=== PATIENT | male | born 1980 | race Caucasian/White ===

== ENCOUNTER 2018-04-19 10:35 | Inpatient (IN) ==
[2018-04-19] MEDS ORDERED: Morphine Inj 4 MG/ML Vial IV.PUSH ONE (11:00)
--- NOTE | 2018-04-19 11:05 | ED ---
HPI General Chief Complaint: Fall Stated Complaint: lt rib pain after fall x lastnight Time Seen by Provider: 04/19/18 10:57 Source: patient Mode of arrival: ambulatory Limitations: no limitations History of Present Illness HPI Narrative: The patient is a 37-year-old male who presents to the emergency department via private vehicle for left chest pain. The patient states he was drinking alcohol last night when he fell against a chair. He now complains of left-sided lateral and posterior rib pain, mild shortness of breath , and pain with movement. The patient states the pain is moderate to severe, worse with movement, breathing, and inspiration. The patient does have a history of asthma, denies any history of previous pneumothorax. The patient denies any head injury or loss of consciousness during the fall. He denies any significant nausea, vomiting, or abdominal pain. The patient denies any medications except for albuterol, has no known drug allergies, but has had previous surgeries including shoulder surgery and ankle surgery. The patient does not have a local primary physician. MD complaint: Reports fall Onset (ago): hour(s) Fall from: standing Fall witnessed: no Place fall occurred: home Loss of consciousness: none Prolonged down time: no Symptoms prior to fall: Reports none Context: Reports alcohol use Location of injury: Reports chest Severity: severe Severity scale (1-10): 8 Quality: Reports stabbing Associated symptoms (after fall): Reports chest pain Related Data Home Medications Medication Instructions Recorded Confirmed budesonide-formoterol [Symbicort] 2 puff INHALATION BID PRN 04/19/18 04/19/18 Allergies Allergy/AdvReac Type Severity Reaction Status Date / Time No Known Allergies Allergy Verified 04/19/18 10:36 Review of Systems ROS: all other systems reviewed are negative [facility] Medical History Medical History Asthma (Acute) Surgical History Surgical History History of ankle surgery (Acute) Hx of shoulder surgery (Acute) Social History Social History Substance History: No History of Abuse Smoking Status: Current every day smoker Tobacco Type: Cigarettes How Often Do You Have a Drink Containing Alcohol: 2 to 3 times a week Recent Travel in [facility] within the Last 8 Weeks: No Recent Out of Country Travel within the Last 8 Weeks: No Immunization History Tetanus Immunization: <5 Years Exam Narrative Exam Narrative: GENERAL: Awake, alert, pleasant 37-year-old male who appears his stated age and is in no acute respiratory distress. Appears in moderate discomfort. SKIN: Focused skin assessment warm/dry. HEAD: Atraumatic. Normocephalic. EYES: Pupils equal and round. No scleral icterus. No injection or drainage. ENT: No nasal bleeding or discharge. Mucous membranes pink and moist. NECK: Trachea midline. No JVD. CARDIOVASCULAR: Regular rate and rhythm. No murmur appreciated. Heart rate in the 90s. Small amount of subcutaneous emphysema in the left lateral chest wall. RESPIRATORY: No accessory muscle use. Clear to auscultation. Breath sounds equal bilaterally. GASTROINTESTINAL: Abdomen soft, non-tender, nondistended. No guarding or rigidity. MUSCULOSKELETAL: No obvious deformities. No clubbing. No cyanosis. No edema. NEUROLOGICAL: Awake and alert. No obvious cranial nerve deficits. Motor grossly within normal limits. Normal speech. PSYCHIATRIC: Appropriate mood and affect; insight and judgment normal. Course Initial Documented Vital Signs Temperature 98.4 F 04/19/18 10:36 Pulse Rate 93 H 04/19/18 10:36 Respiratory Rate 24 04/19/18 10:36 Blood Pressure 127/81 04/19/18 10:36 Pulse Oximetry 96 04/19/18 10:36 Last Documented Vital Signs Temperature 98.4 F 04/19/18 10:36 Pulse Rate 93 H 04/19/18 10:36 Respiratory Rate 24 04/19/18 10:36 Blood Pressure 127/81 04/19/18 10:36 Pulse Oximetry 100 04/19/18 11:35 Medical Decision Making MDM Narrative Medical decision making narrative: IV was established, labs are drawn and sent, and the patient was placed on cardiac telemetry monitoring and continuous pulse oximetry monitoring. The patient was administered morphine, Zofran, and IV fluids. Chest x-ray was obtained. Chest x-ray reveals a 1.1 cm apical left pneumothorax with nondisplaced left seventh rib fracture. I discussed the patient with the trauma surgeon, Dr. Narayanan, who agrees with admission. The patient was placed on nonrebreather oxygen and his symptoms improved. After discussion it was agreed no initial chest tube would be placed. Abdominal exam was benign, CT the abdomen pelvis will be held, serial abdominal exams will be performed. The patient will be transferred to [facility] under the trauma service. I discussed the findings with the patient who is comfortable with plan of care and disposition. Medical Screen Exam Complete: Yes Emergency Medical Condition: Yes Lab Data Lab results reviewed: Yes I reviewed the patient's lab results. Result diagrams: 04/19/18 11:15 04/19/18 11:15 Lab Results 04/19/18 04/19/18 04/19/18 Range/Units 11:15 11:15 11:15 CBC w Diff Auto diff final WBC 14.9 H (4.0-11.0) th/mm3 RBC 5.12 (4.50-5.90) mil/mm3 Hgb 16.5 (13.0-17.0) gm/dL Hct 47.3 (39.0-51.0) % MCV 92.4 (80.0-100.0) fL MCH 32.2 (27.0-34.0) pg MCHC 34.8 (32.0-36.0) % RDW 12.3 (11.6-17.2) % Plt Count 257 (150-450) th/mm3 MPV 8.7 (7.0-11.0) fL Neut % (Auto) 80.7 H (16.0-70.0) % Lymph % (Auto) 11.1 (9.0-44.0) % [place]morton % (Auto) 7.0 (0.0-8.0) % Eos % (Auto) 0.3 (0.0-4.0) % Baso % (Auto) 0.9 (0.0-2.0) % Neut # (Auto) 12.1 H (1.8-7.7) th/mm3 Lymph # (Auto) 1.7 (1.0-4.8) th/mm3 [place]morton # (Auto) 1.0 H (0.0-0.9) th/mm3 Eos # (Auto) 0.0 (0.0-0.4) th/mm3 Baso # (Auto) 0.1 (0.0-0.2) th/mm3 WBC Differential . Differential Comment . PT 10.0 (9.8-11.6) sec INR 1.0 Ratio APTT 27.8 (23.4-31.7) sec Sodium 142 (136-145) meq/L Potassium 4.2 (3.5-5.1) meq/L Chloride 107 (98-107) meq/L Carbon Dioxide 25.8 (21.0-32.0) meq/L Anion Gap 9 (5-15) meq/L BUN 8 (7-18) mg/dL Random Glucose 90 (74-106) mg/dL Calcium 9.1 (8.5-10.1) mg/dL Imaging Data Attestation: I personally reviewed and interpreted this imaging study as follows : My impression: Left pneumothorax Radiologist's impression: Chest X-Ray 04/19/18 11:00 CONCLUSION: 1. Small left apical pneumothorax with 1.1 cm separation. 2. Nondisplaced fracture involving the lateral aspect of the left seventh rib. 3. No focal or acute pulmonary infiltrates. Discharge Plan Discharge Disposition Patient Disposition: 30 Still Patient Discharge Condition Condition: Stable Discharge Details Diagnosis: Pneumothorax, acute, Closed rib fracture Physicians Team ED Provider: Pradeep Hammer Primary Care Provider: Primary Care Sheba Hanks Attending Provider: Ashvin Narayanan Status ED Status: Admitted Observation Patient
[2018-04-19] MEDS: Sod Chloride 0.9% Inj 1,000 ML IV.CONT SCH ×2 (11:19→22:54)
--- NOTE | 2018-04-19 11:25 | XR ---
EXAM DATE: 04/19/2018 11:16 AM EST AGE/SEX: 37 years / Male INDICATIONS: Fell last pm, left side chest pain CLINICAL DATA: This is the patient's initial encounter. Patient reports that signs and symptoms have been present for 1 day and indicates a pain score of 10/10. MEDICAL/SURGICAL HISTORY: None. None. COMPARISON: No prior exams available for comparison. FINDINGS: An AP view of the chest has been performed. There is a small left apical pneumothorax with approximat mago 1.1 cm separation at the apex. Otherwise, the lungs are clear and well aerated. No focal or acute parenchymal infiltrates are demonstrated. There are no pleural effusions or pulmonary edema. Heart s ize is within normal limits. There is some focal cortical irregularity involving the lateral seventh left rib. This is suggestive of a nondisplaced rib fracture. CONCLUSION: 1. Small left apical pneumothorax with 1.1 cm separation. 2. Nondisplaced fracture involving the lateral aspect of the left seventh rib. 3. No focal or acute pulmonary infiltrates. Electronically signed by: Miguelito Black MD 04/19/2018 11:24 AM EST
[2018-04-19 12:05] LABS: Baso # (Auto) 0.1 th/mm3 (0.0-0.2); Baso % (Auto) 0.9 % (0.0-2.0); Eos % (Auto) 0.3 % (0.0-4.0); Hematocrit 47.3 % (39.0-51.0); Hemoglobin 16.5 gm/dL (13.0-17.0); Lymph # (Auto) 1.7 th/mm3 (1.0-4.8); Lymph % (Auto) 11.1 % (9.0-44.0); Mean Corpuscular HGB Conc 34.8 % (32.0-36.0); Mean Corpuscular Hemoglobin 32.2 pg (27.0-34.0); Mean Corpuscular Volume 92.4 fL (80.0-100.0); Mean Platelet Volume 8.7 fL (7.0-11.0); Neut # (Auto) 12.1 th/mm3 (1.8-7.7); Neut % (Auto) 80.7 % (16.0-70.0); Platelet Count 257 th/mm3 (150-450); Red Blood Count 5.12 mil/mm3 (4.50-5.90); Red Cell Distribution Width 12.3 % (11.6-17.2); White Blood Count 14.9 th/mm3 (4.0-11.0)
[2018-04-19 12:19] LABS: Chloride 107 meq/L (98-107); Potassium 4.2 meq/L (3.5-5.1); Sodium 142 meq/L (136-145)
[2018-04-19 12:21] LABS: Activated Partial Thrombo Time 27.8 sec (23.4-31.7)
[2018-04-19 12:24] LABS: Anion Gap 9 meq/L (5-15); Calcium 9.1 mg/dL (8.5-10.1); Carbon Dioxide 25.8 meq/L (21.0-32.0); Glucose,Random 90 mg/dL (74-106)
[2018-04-19 12:25] LABS: Blood Urea Nitrogen 8 mg/dL (7-18)
[2018-04-19 12:28] LABS: Glomerular Filtration Rate Greater Than 89 mL/min (>89)
[2018-04-19] MEDS ORDERED: Acetaminophen 325 MG Tablet PO PRN (12:53)
[2018-04-19] MEDS ORDERED: Morphine Sulfate Inj 2 MG/ML Vial IV.PUSH PRN (12:58)
[2018-04-19] MEDS: Methocarbamol 500 MG Tablet PO SCH ×3 (14:22→21:06)
[2018-04-19] MEDS: Lidocaine 5% Patch T-DERMAL SCH (14:22)
[2018-04-19] MEDS: Multivitamin Inj 10 ML, Thiamine Inj 100 MG, Folic Acid Inj 1 MG in Sodium Chlor 0.9% I... IV.SIG SCH (17:09)
[2018-04-19] MEDS: Ibuprofen 600 MG Tablet PO PRN (20:55)
[2018-04-19] MEDS: Senna/Docusate Sodium 8.6/50 MG Tablet PO SCH (20:56)
--- NOTE | 2018-04-19 21:39 | MH ---
cc: Ashvin Narayanan MD DATE OF ADMISSION: 04/19/2018 CHIEF COMPLAINT: Fall, left pneumothorax. HISTORY OF PRESENT ILLNESS: The patient is a 37-year-old male who is status post fall. The patient noted to be positive ETOH when he fell out of his chair last night and fell on his left side on left wrist and left chest. The patient minimal shortness of breath and pain with movement. He came to the emergency department for further evaluation at [place] with findings of a 1 cm pneumothorax. The patient was hemodynamically stable, saturations 96%. He denied any other illegal substance. He was transferred to the [facility] for further management. A chest x-ray noted a single 7th rib fracture and small apical pneumothorax. The patient has never had a fall quite like this before and is noted to be positive for smoking. PAST MEDICAL HISTORY: Asthma. PAST SURGICAL HISTORY: Right lower extremity and orthopedic surgery. SOCIAL HISTORY: Positive for smoking, occasional ETOH, occasional IVDA. ALLERGIES: NO KNOWN DRUG ALLERGIES. MEDICATIONS: See electronic medical record. FAMILY HISTORY: Denies diabetes or hypertension. REVIEW OF SYSTEMS: General: 12-point review of systems done, otherwise negative except as above. PHYSICAL EXAMINATION: GENERAL: The patient is in no acute distress. VITAL SIGNS: Temperature 98.4, pulse 93, respirations 24, blood pressure 127/81, saturation 96%. HEENT: Pupils are equal, round, reactive. NECK: Supple. Trachea midline. LUNGS: Bilateral expansion, clear, slight diminished left-sided lung sounds. Positive tenderness to palpation in left chest. ABDOMEN: Soft, nontender, nondistended. EXTREMITIES: Warm and well perfused. Left wrist: minimal tenderness to palpation. Full range of motion. NEUROLOGIC: GCS of 15. 5/5 motor in all extremities. PSYCHIATRIC: Appropriate mood, appropriate judgment. PELVIS: Stable. BACK: No step-off, nontender. LABORATORY AND DIAGNOSTIC DATA: WBC 14.9, hemoglobin 16.5, hematocrit 47.3, platelet 257. INR 1. Sodium 142, potassium 4.2, chloride 107, BUN 8, creatinine 0.8, calcium 9.1. Chest x-ray by myself showing small apical pneumothorax, 7th rib fracture. ASSESSMENT: The patient, a 37-year-old male, status post fall from chair a left 7th rib fracture, small pneumothorax. PLAN: Plan for full work up of patient with the above-named issues at this point. The patient has needs for pain control, IV fluids and muscle relaxants. We will place nasal cannula O2 and recheck a chest x-ray in the morning. The patient will be admitted for observation and close monitoring. Discussed with the patient if the pneumothorax increases, will need chest tube; if stable or improved, the patient can likely undergo just a complete observation. He states understanding and agrees. We will do Clinical [place] Withdrawal Assessment protocol and close monitoring. MD LISANDRO Wadsworth/jj , 09:13 PM , 09:20 PM
[2018-04-20] MEDS: Sod Chloride 0.9% Inj 1,000 ML IV.CONT SCH ×3 (02:57→18:02)
[2018-04-20] MEDS: Methocarbamol 500 MG Tablet PO SCH ×5 (04:27→23:32)
[2018-04-20 04:32] LABS: Baso # (Auto) 0.1 th/mm3 (0.0-0.2); Baso % (Auto) 0.8 % (0.0-2.0); Eos # (Auto) 0.1 th/mm3 (0.0-0.4); Eos % (Auto) 1.4 % (0.0-4.0); Hematocrit 40.4 % (39.0-51.0); Hemoglobin 14.1 gm/dL (13.0-17.0); Lymph # (Auto) 2.2 th/mm3 (1.0-4.8); Lymph % (Auto) 29.5 % (9.0-44.0); Mean Corpuscular HGB Conc 34.8 % (32.0-36.0); Mean Corpuscular Hemoglobin 32.5 pg (27.0-34.0); Mean Corpuscular Volume 93.6 fL (80.0-100.0); Mean Platelet Volume 8.4 fL (7.0-11.0); Mono % (Auto) 13.8 % (0.0-8.0); Neut # (Auto) 4.1 th/mm3 (1.8-7.7); Neut % (Auto) 54.5 % (16.0-70.0); Platelet Count 166 th/mm3 (150-450); Red Blood Count 4.32 mil/mm3 (4.50-5.90); Red Cell Distribution Width 13.1 % (11.6-17.2); White Blood Count 7.6 th/mm3 (4.0-11.0)
[2018-04-20 04:51] LABS: Anion Gap 3 meq/L (5-15); Blood Urea Nitrogen 16 mg/dL (7-18); Calcium 8.5 mg/dL (8.5-10.1); Carbon Dioxide 31.6 meq/L (21.0-32.0); Chloride 106 meq/L (98-107); Glomerular Filtration Rate Greater Than 89 mL/min (>89); Glucose,Random 69 mg/dL (74-106); Potassium 4.4 meq/L (3.5-5.1); Sodium 141 meq/L (136-145)
[2018-04-20] MEDS: Senna/Docusate Sodium 8.6/50 MG Tablet PO SCH ×2 (08:24→20:48)
[2018-04-20] MEDS: Lidocaine 5% Patch T-DERMAL SCH (08:25)
--- NOTE | 2018-04-20 08:52 | XR ---
EXAM DATE: 04/20/2018 8:41 AM EST AGE/SEX: 37 years / Male INDICATIONS: Shortness of breath. CLINICAL DATA: This is the patient's subsequent encounter. Patient reports that signs and symptoms h ave been present for 2 days and indicates a pain score of 8/10. MEDICAL/SURGICAL HISTORY: None. None. COMPARISON: [facility], CHEST 1V SINGLE AP, 04/19/2018. . FINDINGS: There is a stable small left apical pneumothorax with approximately 1 cm separation. This is not sign ificantly changed compared to the prior examination. Otherwise, the lung espino remain clear and well aerated. No new or acute pulmonary infiltrates are demonstrated. No evidence of pleural effusions. T he heart size is stable. Stable nondisplaced left-sided rib fracture. CONCLUSION: 1. Stable small left apical pneumothorax with 1 cm separation. 2. Otherwise, the lung espino remain clear. No focal or acute pulmonary infiltrates.. Electronically signed by: Miguelito Black MD 04/20/2018 8:50 AM EST
[2018-04-20] MEDS ORDERED: Budesonide-Formoterol 160/4.5 MCG 6 GM Inhaler INH PRN (10:00)
--- NOTE | 2018-04-20 11:24 | CT ---
EXAM DATE: 04/20/2018 11:14 AM EST AGE/SEX: 37 years / Male INDICATIONS: Fall hit chair left side pain. CLINICAL DATA: This is the patient's initial encounter. Patient reports that signs and symptoms have been present for 1 day and indicates a pain score of 8/10. MEDICAL/SURGICAL HISTORY: Arthritis. None. ORAL CONTRAST: No oral contrast ingested. RADIATION DOSE: 5.78 CTDI (mGy) ; Combined studies COMPARISON: [facility], CT ABDOMEN & PELVIS W/O CONTRAST, 04/17/2016. . TECHNIQUE: Multiple contiguous axial images were obtained through the abdomen and pelvis following b olus infusion of 96 ml Omnipaque 350 (iohexol) nonionic water-soluble contrast as a cumulative dose for multiple exams. No oral contrast ingested. Using automated exposure control and adjustment of t he mA and/or kV according to patient size, radiation dose was kept as low as reasonably achievable to obtain optimal diagnostic quality images. DICOM format image data is available electronically for r eview and comparison. FINDINGS: Lower chest: A small pneumothorax is present. Please refer to chest CT report for additional descript ion of the chest findings. Hepatobiliary: No focal liver lesion is identified. Hepatic vasculature demonstrates no abnormality. No calcified gallstones are present. No acute injury is identified. Kidneys: No hydronephrosis, stone, or mass. Adrenal Glands: Within normal limits. Spleen: Normal size without acute injury. There is a cleft along the superior aspect. Pancreas: Within normal limits. Vascular: The aorta is nonaneurysmal. There is mild atherosclerotic disease. Bowel/Mesentery: The stomach and small bowel demonstrate no abnormality. No acute colon abnormality i s seen. There is no free intraperitoneal air or fluid. There is sigmoid diverticulosis. The appendix is normal. Abdominal Wall: No hernia is visualized. There is subcutaneous air in the soft tissue swelling along the left posterior lateral inferior chest. Retroperitoneum: No lymphadenopathy. Bladder: No wall thickening or mass. Reproductive: Within normal limits. Inguinal: No lymphadenopathy or hernia. Musculoskeletal: There are displaced rib fractures involving the left posterior lateral ninth and 10t h ribs. There is present in the adjacent subcutaneous tissues. No other acute osseous abnormality is identified. CONCLUSION: 1. There are acute displaced rib fractures involving the left ninth and 10th ribs. Adjacent subcutan eous air and soft tissue swelling is present. There is a small left pneumothorax with small left pleu ral effusion. Please refer to chest CT report for description of the remaining chest findings. 2. Mild atherosclerotic disease. Electronically signed by: Jonnathan Eubanks MD 04/20/2018 11:22 AM EST
--- NOTE | 2018-04-20 11:37 | CT ---
EXAM DATE: 04/20/2018 11:19 AM EST AGE/SEX: 37 years / Male INDICATIONS: Fall hit chair left side pain CLINICAL DATA: This is the patient's subsequent encounter. Patient reports that signs and symptoms h ave been present for 1 day and indicates a pain score of 8/10. MEDICAL/SURGICAL HISTORY: Asthma. None. RADIATION DOSE: 5.78 CTDI (mGy) ; Combined studies COMPARISON: [facility], CHEST 1V SINGLE AP, 04/20/2018. [facility], CHEST 1V SINGLE AP, 04/19/2018. . TECHNIQUE: Multiple contiguous axial images were obtained through the chest during bolus infusion of 96 ml Omnipaque 350 (iohexol) nonionic water-soluble contrast as a cumulative dose for multiple exa ms. Images were obtained in suspended respiration using multiple row detector helical technique. U sing automated exposure control and adjustment of the mA and/or kV according to patient size, radiati on dose was kept as low as reasonably achievable to obtain optimal diagnostic quality images. DICOM format image data is available electronically for review and comparison. FINDINGS: Lungs: There is a small left-sided pneumothorax. Otherwise, there is good aeration of both lung fiel ds. No focal or acute pulmonary infiltrates are demonstrated. There is some mild bibasilar atelectasi s. Mediastinum: There is good visualization of the great vessels of the middle mediastinum. No evidenc e of mediastinal or hilar adenopathy/mass. Pleurae: Tiny left-sided pleural effusion. Axillae: Unremarkable. Bony Structures: Nondisplaced fractures involving the left ninth and 10th ribs. Small amount of subc utaneous emphysema is seen adjacent to the fractures. Miscellaneous: The examination was extended to include the upper abdomen, and both adrenal glands ar e normal in size and configuration. CONCLUSION: 1. Small left pneumothorax. This correlates with the recent chest x-ray. 2. There is good aeration of both lung espino. There is mild bibasilar atelectasis. Electronically signed by: Miguelito Black MD 04/20/2018 11:36 AM EST
--- NOTE | 2018-04-20 12:24 | P.PN ---
Subjective Interval history: Trauma PTD: 2. HD: 1 Patient just returned from CAT scan. Visitors at bedside. Patient remains painful. Patient states, "I have had kidney stones before, but that pain came and subsided. This hurts." Patient states "I have been getting over a cold, so I have this cough. Coughing hurts so much." Patient states he has been doing his pulmonary toileting exercises as ordered. Patient wants to go home. Physical Exam Vital signs: Vital Signs 04/19/18 14:50 04/19/18 15:15 04/19/18 15:50 Temperature 98.1 F Pulse Rate 82 68 Respiratory Rate 16 17 Blood Pressure 110/61 127/63 Pulse Oximetry 99 100 99 04/19/18 20:45 04/19/18 20:46 04/19/18 21:25 Temperature 97.4 F L Pulse Rate 65 Respiratory Rate 17 18 20 Blood Pressure 122/67 Pulse Oximetry 99 04/19/18 21:26 04/20/18 00:00 04/20/18 01:39 Temperature 97.2 F L Pulse Rate 58 L Respiratory Rate 20 18 17 Blood Pressure 111/62 Pulse Oximetry 100 04/20/18 04:00 04/20/18 05:29 04/20/18 09:00 Temperature 97.2 F L Pulse Rate 58 L Respiratory Rate 20 17 16 Blood Pressure 113/56 L Pulse Oximetry 100 04/20/18 09:10 Temperature 98 F Pulse Rate 74 Respiratory Rate 17 Blood Pressure 112/57 L Pulse Oximetry 96 Intake & Output 04/19/18 04/20/18 04/20/18 18:59 06:59 18:59 Intake Total 1511.2 / 1511.2 480 / 480 Balance 1511.2 / 1511.2 480 / 480 Weight 63.3 kg Intake: IV 1511.2 / 1511.2 NS Inj 1,000 ML @ 100 mls/hr IV 1000 / 1000 .CONT .Q10H NATE Rx#:[id number] MVI-12 Inj 10 ML Thiamine Inj 511.2 / 511.2 100 MG Folvite Inj 1 MG In NS Inj 500 ML @ 125 mls/hr IV.SIG Q24H NATE Rx#:[id number] Oral 480 / 480 Other: # Voids 2 0 Date of Last Bowel Movement 04/18/18 04/19/18 Narrative: GENERAL: This is a 37-year-old male sitting up in bed. Painful. SKIN: Warm and dry. HEAD: Atraumatic. Normocephalic. EYES: PERRLA ENT: No nasal bleeding or discharge. Mucous membranes pink and moist. NECK: Trachea midline. No JVD. CARDIOVASCULAR: Regular rate and rhythm. RESPIRATORY: No accessory muscle use. Lungs are with some rhonchi to auscultation. Breath sounds equal bilaterally. No distress or dyspnea. GASTROINTESTINAL: BS + x 4 quads. Abdomen soft, non-tender, nondistended. MUSCULOSKELETAL: Extremities without cyanosis, or edema. + peripheral pulses x 4 extremities. Warm with good capillary refill and sensation. MAEW. NEUROLOGICAL: Awake and alert. Normal speech and pattern. Results - Labs CBC & Chem 7: 04/20/18 03:55 04/20/18 03:55 Laboratory Results - last 24 hr 04/19/18 04/19/18 04/19/18 11:15 11:15 11:15 WBC RBC Hgb Hct MCV MCH MCHC RDW Plt Count MPV Neut % (Auto) Lymph % (Auto) [place] % (Auto) Eos % (Auto) Baso % (Auto) Neut # (Auto) Lymph # (Auto) [place] # (Auto) Eos # (Auto) Baso # (Auto) WBC Differential Differential Comment Sodium Potassium Chloride Carbon Dioxide 25.8 Anion Gap 9 BUN 8 Creatinine 0.82 Estimated GFR Greater than 89 Random Glucose 90 Calcium 9.1 Nasal Screen MRSA (PCR) Serum Alcohol 48 H Blood Type O Positive Blood Type Recheck Required Antibody Screen Negative 04/19/18 04/20/18 04/20/18 15:40 03:55 03:55 WBC 7.6 RBC 4.32 L Hgb 14.1 D Hct 40.4 MCV 93.6 MCH 32.5 MCHC 34.8 RDW 13.1 Plt Count 166 D MPV 8.4 Neut % (Auto) 54.5 Lymph % (Auto) 29.5 [place] % (Auto) 13.8 H Eos % (Auto) 1.4 Baso % (Auto) 0.8 Neut # (Auto) 4.1 Lymph # (Auto) 2.2 [place] # (Auto) 1.0 H Eos # (Auto) 0.1 Baso # (Auto) 0.1 WBC Differential . Differential Comment Auto diff final Sodium 141 Potassium 4.4 Chloride 106 Carbon Dioxide 31.6 Anion Gap 3 L BUN 16 Creatinine 0.85 Estimated GFR Greater than 89 Random Glucose 69 L Calcium 8.5 Nasal Screen MRSA (PCR) Not detected Serum Alcohol Blood Type Blood Type Recheck Antibody Screen - Imaging Impressions Chest X-Ray 04/20/18 06:00 CONCLUSION: 1. Stable small left apical pneumothorax with 1 cm separation. 2. Otherwise, the lung espino remain clear. No focal or acute pulmonary infiltrates.. Abdomen/Pelvis CT 04/20/18 10:25 CONCLUSION: 1. There are acute displaced rib fractures involving the left ninth and 10th ribs. Adjacent subcutaneous air and soft tissue swelling is present. There is a small left pneumothorax with small left pleural effusion. Please refer to chest CT report for description of the remaining chest findings. 2. Mild atherosclerotic disease. Chest CT 04/20/18 10:26 CONCLUSION: 1. Small left pneumothorax. This correlates with the recent chest x-ray. 2. There is good aeration of both lung espino. There is mild bibasilar atelectasis. Assessment and Plan - Assessment (1) Pneumothorax, acute Code(s): J93.83 - Other pneumothorax Status: Acute (2) Closed rib fracture Code(s): S22.39XA - Fracture of one rib, unspecified side, initial encounter for closed fracture Status: Acute - Plan [facility]: This is a 37-year old male who sustained a fall. He fell against a chair when drinking alcohol the night before. He came into the ED via private vehicle complaining of left rib pain and shortness of breath. INJURIES: LEFT apical PTX LEFT rib fx (9,10) PMHx: Asthma. Smoker. EtOH Procedures: Consults: Case management Obtain CT chest today -shows small left apical PTX along with left rib fractures. Obtain CT abdomen and pelvis today -negative for any traumatic injuries Diet: Regular diet. Tolerating po diet. Encourage good po intake with each meal. Pulmonary: Encourage good pulmonary toileting. IS at bedside and pt encouraged to use. Rationale for use explained to patient, and verbalized understanding. Today's chest x-ray shows persistent PTX. Follow-up chest x-ray in the morning to monitor PTX. PAIN Management: Percocet 5-7.5 mg q4h. Morphine 2 mg q3h for breakthrough pain. Robaxin 500 mg q8h. Motrin 600 mg Q8h. Lidoderm patch. ETOH: Valium taper Activity: OOB. PT ordered. GI prophylaxis: Not indicated at this time. Bowel regimen: Adrianne-Colace. MOM. LBM: 0 DVT prophylaxis: Mechanical VTE with SCDs. Chemical management with Lovenox 40 mg QD SQ. DC Planning: Case management consulted for assistance with final discharge disposition. Consider discharge once pain controlled Emotional support provided to patient and family at bedside and plan of care discussed. Discussed with RN at bedside. Discussed pt condition and plan of care with collaborating trauma surgeon. Patient is hemodynamically stable and being managed on the med/surg floor. The trauma team will round each day, and evaluate plan of care on a daily basis. LEFT apical PTX LEFT rib fx (9,10) Hx: Asthma O2 nasal cannula as needed Aggressive pulmonary toileting -to prevent atelectasis Close observation Supportive care Resume home Symbicort PRN A.m. chest x-ray shows persistent left apical PTX 12/3: Obtain CT chest -shows left apical PTX, 2 rib fractures 12/3: Obtain CT abdomen and pelvis -negative for any traumatic injuries Pain management Follow-up chest x-ray in the morning to follow PTX Encourage out of bed PT ordered Bowel regimen Lovenox for DVT prophylaxis EtOH Vital signs every 4 hours and as needed Monitor closely for signs of DTs Provide a calm, quiet, reassuring environment Ongoing reassessment Attention to fluid and electrolytes Treat any coexisting addictions Aspiration precautions Valium taper Discussed the importance of abstaining from alcohol MVI IV times 3 days Seizure precautions Follow labs - Attending Attestation CT scan reviewed two rib fractures continue pain control pulmonary toilet discharge (2) Closed rib fracture Qualifiers: Encounter type: initial encounter Rib fracture type: single rib Laterality: left Qualified Code(s): S22.32XA - Fracture of one rib, left side, initial encounter for closed fracture
[2018-04-20] MEDS: Multivitamin Inj 10 ML, Thiamine Inj 100 MG, Folic Acid Inj 1 MG in Sodium Chlor 0.9% I... IV.SIG SCH ×2 (12:46→14:12)
[2018-04-21] MEDS: Ibuprofen 600 MG Tablet PO PRN (00:53)
[2018-04-21] MEDS: Sod Chloride 0.9% Inj 1,000 ML IV.CONT SCH (07:30)
[2018-04-21] MEDS: Methocarbamol 500 MG Tablet PO SCH (07:47)
[2018-04-21] MEDS: Senna/Docusate Sodium 8.6/50 MG Tablet PO SCH (08:16)
[2018-04-21] MEDS: Lidocaine 5% Patch T-DERMAL SCH (08:16)
[2018-04-21 08:26] VITALS: BP 107/59; PULSE 71; RESP 16; TEMP 97.3; O2SAT 95
--- NOTE | 2018-04-21 08:55 | XR ---
EXAM DATE: 04/21/2018 8:44 AM EST AGE/SEX: 37 years / Male INDICATIONS: Trauma. Rib fractures. CLINICAL DATA: This is the patient's subsequent encounter. Patient reports that signs and symptoms h ave been present for 3 days and indicates a pain score of 10/10. MEDICAL/SURGICAL HISTORY: None. None. COMPARISON: [facility] [place], CT CHEST W CONTRAST, 04/20/2018. . FINDINGS: 2 portable AP views of the chest demonstrates a normal-sized cardiac silhouette. There is a stable sm all left apical pneumothorax. There is a small hazy left pleural-parenchymal opacity at the left base . Left rib fractures are again identified involving the ninth and 10th ribs. Right lung is clear. CONCLUSION: 1. Stable tiny left apical pneumothorax. 2. Left basilar pleural-parenchymal opacity has slightly increased and represents pleural effusion w ith associated atelectasis and/or consolidation. 3. Left ninth and 10th rib fractures remain visualized. Electronically signed by: Jonnathan Eubanks MD 04/21/2018 8:54 AM EST
--- NOTE | 2018-04-21 13:13 | P.DS ---
<Delisa Mar F - Last Filed: 04/21/18 13:06> Date of admission: 04/19/18 11:46 Primary care physician: No Primary Care Physician Attending physician on discharge: Princess Espinal Anticipated date of discharge: 04/21/18 Brief History from admission: Fall. DS: Diagnosis - Discharge Diagnosis (1) Pneumothorax, acute Status: Acute (2) Closed rib fracture Status: Acute DS: Medications - Discharge Medications Prescriptions: lidocaine [Lidoderm] 1 patch TRANSDERMAL DAILY 7 Days #7 each methocarbamol 500 mg PO Q8HR 7 Days #21 tab oxycodone-acetaminophen 1 tab PO Q4H PRN 3 Days #18 tab PRN Reason: Pain DS: Summary Hospital Course: [place] This is a 37-year old male who sustained a fall. He fell against a chair when drinking alcohol the night before. He came into the ED via private vehicle complaining of left rib pain and shortness of breath. INJURIES: LEFT apical PTX LEFT rib fx (9,10) PMHx: Asthma. Smoker. EtOH Procedures: Consults: Case management Patient really wants to go home now. Patient states his son is in [place], and about to undergo open heart surgery tomorrow. Patient states he needs to get to his bedside immediately. Follow-up chest x-ray shows stable PTX. Patient with no signs and symptoms of respiratory distress. On room air. The patient is now tolerating a po diet. Eating and drinking well. Pain is being managed well with PO pain medications, and patient is being a provided with a script for pain meds upon discharge. [This patient will be prescribed narcotic pain medications due to his traumatic injuries. The patient has a normal physiological response to severe traumatic injuries and surgery. He will need acute pain management with prescribed narcotic treatment. The [employer] prescription drug monitoring program database has been queried.] (NO driving while taking narcotic pain medication enforced to patient.) Pt is having regular bowel movements, and have recommended to patient to continue with stool softeners while taking narcotic pain medications to prevent constipation. Pt has been participating in PT while admitted at [facility] and has been ambulating with their assistance and independently. No home PT needs All follow up appointments have been provided and discussed with the patient. It is recommended that the patient keeps all his follow up appointments for continued recovery. Patient reminded to continue pulmonary toileting exercises. Even at home. Discussed the importance of no airplane travel. Mother at bedside, and states that they have canceled their flights, and she will be driving the patient to [place] to see his son. Patient's condition and plan of care discussed with collaborating trauma surgeon. He is agreeable to plan for discharge today. Therefore, the patient is stable to be safely discharged home from a trauma surgery standpoint. Thank you for allowing us to participate in his care. We wish Peter the best in his recovery. LEFT apical PTX LEFT rib fx (9,10) Hx: Asthma O2 nasal cannula as needed Aggressive pulmonary toileting -to prevent atelectasis Close observation Supportive care Resume home Symbicort PRN A.m. chest x-ray shows persistent/stable left apical PTX 04/20: CT chest - PTX. Rib fracture. 04/20: CT abd/pel - NEG Pain management Patient with no signs and symptoms of any respiratory distress. Encourage out of bed PT ordered Bowel regimen Lovenox for DVT prophylaxis EtOH Vital signs every 4 hours and as needed Monitor closely for signs of DTs Provide a calm, quiet, reassuring environment Ongoing reassessment Attention to fluid and electrolytes Treat any coexisting addictions Aspiration precautions Valium taper Discussed the importance of abstaining from alcohol MVI IV times 3 days Seizure precautions Follow labs - Time Spent with Patient Total time spent providing and/or coordinating discharge services: Greater than 30 minutes - Quality: VTE Deep Vein Thrombosis/Pulmonary Embolism Present on Admission: No Exam Vital signs: Vital Signs 04/20/18 13:35 04/20/18 16:20 04/20/18 18:00 Temperature 97.5 F L Pulse Rate 70 Respiratory Rate 16 16 16 Blood Pressure 104/55 L Pulse Oximetry 98 04/20/18 20:00 04/20/18 23:30 04/21/18 04:40 Temperature 98 F 97.8 F 97.1 F L Pulse Rate 56 L 73 53 L Respiratory Rate 18 18 18 Blood Pressure 130/63 111/63 131/63 Pulse Oximetry 96 96 96 04/21/18 08:10 Temperature 97.3 F L Pulse Rate 71 Respiratory Rate 16 Blood Pressure 107/59 L Pulse Oximetry 95 Intake & Output 04/20/18 04/21/18 04/21/18 18:59 06:59 18:59 Intake Total 1990.2 / 1990.2 100 / 100 Output Total 700 / 700 Balance 1291.2 / 1291.2 100 / 100 Weight 64.6 kg Intake: IV 1511.2 / 1511.2 NS Inj 1,000 ML @ 100 mls/hr IV 1000 / 1000 .CONT .Q10H NATE Rx#:[id number] MVI-12 Inj 10 ML Thiamine Inj 511.2 / 511.2 100 MG Folvite Inj 1 MG In NS Inj 500 ML @ 125 mls/hr IV.SIG Q24H NATE Rx#:[id number] Oral 480 / 480 100 / 100 Output: Urine 700 / 700 Other: # Voids 1 0 Date of Last Bowel Movement 04/19/18 04/19/18 Narrative: GENERAL: This is a 37-year-old male sitting up in bed. Remains painful. SKIN: Warm and dry. HEAD: Atraumatic. Normocephalic. EYES: PERRLA ENT: No nasal bleeding or discharge. Mucous membranes pink and moist. NECK: Trachea midline. No JVD. CARDIOVASCULAR: Regular rate and rhythm. RESPIRATORY: No accessory muscle use. Lungs are with some rhonchi to auscultation. Breath sounds equal bilaterally. No distress or dyspnea. GASTROINTESTINAL: BS + x 4 quads. Abdomen soft, non-tender, nondistended. MUSCULOSKELETAL: Extremities without cyanosis, or edema. + peripheral pulses x 4 extremities. Warm with good capillary refill and sensation. MAEW. NEUROLOGICAL: Awake and alert. Normal speech and pattern. Results Procedures completed during hospitalization: . - Impressions ITS Impressions Abdomen/Pelvis CT 04/20/18 10:25 CONCLUSION: 1. There are acute displaced rib fractures involving the left ninth and 10th ribs. Adjacent subcutaneous air and soft tissue swelling is present. There is a small left pneumothorax with small left pleural effusion. Please refer to chest CT report for description of the remaining chest findings. 2. Mild atherosclerotic disease. Chest CT 04/20/18 10:26 CONCLUSION: 1. Small left pneumothorax. This correlates with the recent chest x-ray. 2. There is good aeration of both lung espino. There is mild bibasilar atelectasis. Chest X-Ray 04/21/18 06:00 CONCLUSION: 1. Stable tiny left apical pneumothorax. 2. Left basilar pleural-parenchymal opacity has slightly increased and represents pleural effusion with associated atelectasis and/or consolidation. 3. Left ninth and 10th rib fractures remain visualized. <Princess Espinal E - Last Filed: 04/21/18 14:20> Date of admission: 04/19/18 11:46 Primary care physician: No Primary Care Physician DS: Diagnosis - Discharge Diagnosis (1) Pneumothorax, acute Status: Acute (2) Closed rib fracture Status: Acute DS: Summary - Time Spent with Patient Total time spent providing and/or coordinating discharge services: Exam Vital signs: Vital Signs 04/20/18 16:20 04/20/18 18:00 04/20/18 20:00 Temperature 97.5 F L 98 F Pulse Rate 70 56 L Respiratory Rate 16 16 18 Blood Pressure 104/55 L 130/63 Pulse Oximetry 98 96 04/20/18 23:30 04/21/18 04:40 04/21/18 08:10 Temperature 97.8 F 97.1 F L 97.3 F L Pulse Rate 73 53 L 71 Respiratory Rate 18 18 16 Blood Pressure 111/63 131/63 107/59 L Pulse Oximetry 96 96 95 Intake & Output 04/20/18 04/21/18 04/21/18 18:59 06:59 18:59 Intake Total 1991.2 / 1991.2 100 / 100 Output Total 700 / 700 Balance 1291.2 / 1291.2 100 / 100 Weight 64.6 kg Intake: IV 1511.2 / 1511.2 NS Inj 1,000 ML @ 100 mls/hr IV 1000 / 1000 .CONT .Q10H NATE Rx#:[id number] MVI-12 Inj 10 ML Thiamine Inj 511.2 / 511.2 100 MG Folvite Inj 1 MG In NS Inj 500 ML @ 125 mls/hr IV.SIG Q24H NATE Rx#:[id number] Oral 480 / 480 100 / 100 Output: Urine 700 / 700 Other: # Voids 1 0 Date of Last Bowel Movement 04/19/18 04/19/18 Results - Impressions ITS Impressions Abdomen/Pelvis CT 04/20/18 10:25 CONCLUSION: 1. There are acute displaced rib fractures involving the left ninth and 10th ribs. Adjacent subcutaneous air and soft tissue swelling is present. There is a small left pneumothorax with small left pleural effusion. Please refer to chest CT report for description of the remaining chest findings. 2. Mild atherosclerotic disease. Chest CT 04/20/18 10:26 CONCLUSION: 1. Small left pneumothorax. This correlates with the recent chest x-ray. 2. There is good aeration of both lung espino. There is mild bibasilar atelectasis. Chest X-Ray 04/21/18 06:00 CONCLUSION: 1. Stable tiny left apical pneumothorax. 2. Left basilar pleural-parenchymal opacity has slightly increased and represents pleural effusion with associated atelectasis and/or consolidation. 3. Left ninth and 10th rib fractures remain visualized. Addendum Is overall stable he has a very small pneumothorax which is stable on chest x- ray he will be discharged with pain control, patient was instructed not to fly in the next future Discharge Plan - Discharge Order Discharge Orders: Discharge Order (Routine); Ordered 04/21/18 Ordered By: Princess Espinal - Discharge Details Anticipated Discharge Date: 04/21/18 - Physicians Team Primary Care Provider: Primary Care Physici,No Attending Provider: Ashvin Narayanan Other Providers: Cristobal Ca MD ; Ramón Pierre MD ; [employer] ; Justice Sanchez MD ; Delisa Mar ARNP ; Ashvin Narayanan MD ; Princess Espinal MD ; Jenn Hamilton ARNP ; Theodore Gracia MD
== END 2018-04-21 11:26 | disposition home or self-care (01) ==
LOC: PHED 10:35 → PHEDA 10:35 → N06 15:21 → UNDODISOB 04-21 10:35
PROVIDERS: ADMIT Surgery; ATTEND Surgery